=== PATIENT | male | born 1960 | race Caucasian/White ===

== ENCOUNTER 2020-03-18 07:02 | Day surgery (SDC) | payer OTHER ==
[2020-03-16 16:21] LABS: BASOPHILS % (AUTO) 1 % (0-1); EOSINOPHILS % (AUTO) 5 % (1-7); LYMPHOCYTES % (AUTO) 21 % (22-44); MEAN CORPUSCULAR HEMOGLOBIN 29.8 pg (27.5-34.5); MEAN CORPUSCULAR HGB CONC 34.5 g/dL (33.2-36.2); MEAN PLATELET VOLUME 9.2 fL (7.4-10.4); MONOCYTES % (AUTO) 11 % (2-9); NEUTROPHILS % (AUTO) 62 % (42-75); PLATELET COUNT 243 x10^3/uL (130-400); RED CELL DISTRIBUTION WIDTH 13.7 % (9.4-14.8)
[2020-03-16 16:22] LABS: MICROSCOPIC NOT IND
[2020-03-16 16:23] LABS: MD NO
[2020-03-16 16:28] LABS: ANION GAP 7 mmol/L (5-15); CALCIUM 9.1 mg/dL (8.5-10.1); CHLORIDE 106 mmol/L (98-107); INTERNATIONAL NORMALIZED RATIO 0.97 (0.93-1.1); PROTHROMBIN TIME 10.3 Seconds (9.6-11.5)
[~2020-03-18] VITALS: Ht 177.8 cm; Wt 95.0 kg
[~2020-03-18 07:02] MED LIST: AMIT25TA PO; ATOR20TA37 PO; BACITRACIN 50,000 UNIT ONE; BUPIVACAINE 0.25% ONE; BUPIVACAINE/PF 0.5% ONE; DEXAMETHASONE 4 MG/ML, 5ML ONE; EPINEPHRINE 1 MG/ML, 1ML ONE; FENTANYL PF 250 MCG/5ML ONE; GABA300C PO; IBUP-1623 PO; LORA1TAB PO; META800T PO; MIDAZOLAM 1 MG/ML, 2ML ONE; OXYC1TAB14 PO; PROPOFOL 150 ML ONE; ROCURONIUM 10MG/ML,5ML ONE; SENN1TAB35 PO; SIMV20TA19 PO; SUCCINYLCHOLINE 20 MG/ML, 10ML ONE; VANCOMYCIN 1,000 MG ONE
[2020-03-18] MEDS ORDERED: CHLORHEXIDINE 15 ML UDC MM STA (07:10)
[2020-03-18 07:12] VITALS: BP 144/98
[2020-03-18] MEDS ORDERED: LACTATED RINGERS 1,000 ML IV SCH (07:30)
[2020-03-18] MEDS ORDERED: ONDANSETRON 2MG/ML, 2ML ONE (07:34)
[2020-03-18] MEDS ORDERED: CEFAZOLIN 1,000 MG ONE ×2 (07:42)
[2020-03-18] MEDS ORDERED: FENTANYL PF 100 MCG/2ML ONE (08:27)
[2020-03-18] MEDS ORDERED: BUPIVACAINE/PF 0.25% EPIDPUSH ONE (08:33)
[2020-03-18] MEDS ORDERED: FENTANYL PF 100 MCG/2ML EPIDPUSH ONE (08:39)
[2020-03-18] MEDS ORDERED: BUPIVACAINE LIPOSOME/PF 20ML INFIL ONE (08:40)
[2020-03-18] MEDS ORDERED: BUPIVACAINE LIPOSOME/PF 10ML INFIL ONE (08:44)
[2020-03-18] MEDS ORDERED: SENNA/DOCUSATE TABLET PO PRN (09:30)
[2020-03-18] MEDS ORDERED: OXYcodone/APAP 5/325MG TABLET PO PRN (09:30)
[2020-03-18] MEDS ORDERED: morphine SULFATE 10 MG/ML, 1ML IVPush PRN (09:30)
[2020-03-18] MEDS ORDERED: PHARMACY MAY ADJ FOR RENAL FX MC PRN (09:30)
[2020-03-18] MEDS ORDERED: PROMETHAZINE 25 MG/ML, 1ML IM PRN (09:30)
[2020-03-18] MEDS ORDERED: HYDROcodone/APAP 10/325 MG TABLET PO PRN (09:30)
[2020-03-18] MEDS ORDERED: ONDANSETRON 2MG/ML, 2ML IVPush PRN ×2 (09:30→10:00)
[2020-03-18] MEDS ORDERED: D5%-0.9% NACL+KCL 20MEQ 1,000 ML IV SCH (09:30)
[2020-03-18] MEDS ORDERED: DIPHENHYDRAMINE 50 MG/ML, 1ML IVPush PRN (09:30)
[2020-03-18] MEDS ORDERED: METHOCARBAMOL 750 MG TABLET PO PRN (09:30)
[2020-03-18] MEDS ORDERED: OXYcodone 5 MG/5 ML ORAL.SOL UDC PO PRN (10:00)
[2020-03-18] MEDS ORDERED: LABETALOL 5MG/ML, 20ML IV PRN (10:00)
[2020-03-18] MEDS ORDERED: hydrALAzine 20 MG/ML, 1ML IV PRN (10:00)
[2020-03-18] MEDS ORDERED: FENTANYL PF 100 MCG/2ML IV PRN (10:00)
[2020-03-18] MEDS ORDERED: HYDROmorphone 1 MG/ML, 1ML INJ IVPush PRN (10:00)
[2020-03-18] MEDS ORDERED: LORazepam 2 MG/ML, 1ML IVPush PRN (10:00)
[2020-03-18] MEDS ORDERED: DIAZEPAM 5 MG/ML, 2ML IVPush PRN (10:00)
[2020-03-18] MEDS ORDERED: METHOCARBAMOL 1,000 MG in DEXTROSE 5% 100 ML IV PRN (10:00)
[2020-03-18] MEDS ORDERED: PROMETHAZINE 25 MG/ML, 1ML IVPush PRN (10:00)
[2020-03-18] MEDS ORDERED: GABAPENTIN 300 MG CAPSULE PO SCH (16:00)
[2020-03-18] MEDS ORDERED: SODIUM CHLORIDE FLUSH 10ML SYR IVF SCH (21:00)
[2020-03-18] MEDS ORDERED: AMITRIPTYLINE 25 MG TABLET PO SCH (21:00)
[2020-03-18] MEDS ORDERED: ATORVASTATIN 20 MG TABLET PO SCH (21:00)
[2020-03-19] MEDS ORDERED: LORazepam 1MG TABLET PO SCH (09:00)
[2020-03-19] MEDS ORDERED: OXYcodone/APAP 5/325MG TABLET PO SCH (09:00)
== END 2020-03-18 12:30 | disposition home or self-care (01) ==
LOC: OUT 07:02
PROVIDERS: ATTEND Neurological Surgery
DX: M51.16 Intervertebral disc disorders with radiculopathy, lumbar region (principal); M48.061 Spinal stenosis, lumbar region without neurogenic claudication; M21.372 Foot drop, left foot; Z20.822 Contact with and (suspected) exposure to COVID-19; Z79.01 Long term (current) use of anticoagulants; Z79.899 Other long term (current) drug therapy
CPT/HCPCS: 36415; 63030; 71046; 72100; 72110; 80048; 81003; 85025; 85610; 85730; 93005; 95938; 95941; C9290; J0171; J0330; J0690; J1100; J2250; J2405; J2704; J2800; J3010; J3370; J7120; U0003